=== PATIENT | male | born 1955 | race Caucasian/White ===

== ENCOUNTER 2019-06-07 08:28 | Inpatient (IN) | payer MEDICAID, OTHER ==
[~2019-06-07] VITALS: Ht 180.3 cm; Wt 69.4 kg
[2019-06-07] MEDS ORDERED: traMADol HCL 50 MG TAB PO ONE (10:15)
[2019-06-07 10:39] LABS: Basophils # (auto) 0.1 10 ^3/uL (0-0.2); Basophils % (auto) 1.5 % (0.0-2.0); Eosinophils # (auto) 0.2 10 ^3/uL (0-0.8); Eosinophils % (auto) 2.6 % (0.0-7.0); Hematocrit 43.6 % (41.0-53.0); Hemoglobin 15.3 g/dL (13.5-17.5); Lymphocytes # (auto) 1.7 10 ^3/uL (0.4-5.4); Lymphocytes % (auto) 28.6 % (10.0-50.0); Mean Corpuscular Hemoglobin 33.1 pg (28.0-32.0); Mean Corpuscular Hgb Conc. 35.1 g/dL (32.0-36.0); Mean Corpuscular Volume 94.4 fL (80.0-100.0); Monocytes # (auto) 0.5 10 ^3/uL (0-1.3); Monocytes % (auto) 8.1 % (0.0-12.0); Neutrophils # (auto) 3.6 10 ^3/uL (1.6-8.6); Neutrophils % (auto) 59.2 % (37.0-80.0); Nucleated Red Blood Cells % 0.1 %; Platelet Count (auto) 210 10^3/uL (140-450); Red Blood Cells 4.62 10^6/uL (4.5-5.90); Red Cell Distribution Width 14.1 % (11.8-14.3); White Blood Cell 6.1 10^3/uL (4.4-10.8)
[2019-06-07 10:53] LABS: INR 1.02 (0.9-1.15); Partial Thromboplastin Time 27.4 sec (23.64-32.05)
[2019-06-07 10:58] LABS: Albumin 3.8 g/dL (3.4-5.0); Anion Gap 3 (5-15); Blood Urea Nitrogen 16 mg/dL (7-18); Calcium 8.5 mg/dL (8.5-10.1); Carbon Dioxide 28 mmol/L (21-32); Chloride 109 mmol/L (98-107); Glucose 90 mg/dL (74-106); Potassium 3.8 mmol/L (3.5-5.1); Sodium 140 mmol/L (136-145)
[2019-06-07 11:04] LABS: Alanine Aminotransferase 34 U/L (16-61); Alkaline Phosphatase 77 U/L (45-117); Aspartate Aminotransferase 26 U/L (15-37); BUN/Creatinine Ratio 19.5; Bilirubin, Total 1.2 mg/dL (0.2-1.0); GFR African American 122 mL/min; GFR Non-African American 101 mL/min; Total Protein 7.7 g/dL (6.4-8.2)
[2019-06-07] MEDS ORDERED: ONDANSETRON HCL 4 MG/2 ML VIAL IV ONE (11:30)
[2019-06-07] MEDS ORDERED: MORPHINE SULF INJ 2 MG/ML SYRINGE 1ML IV ONE (11:30)
[2019-06-07 11:36] LABS: Urine Bacteria NONE SEEN /hpf (None Seen); Urine Blood Negative /uL (Negative); Urine Specific Gravity 1.011 (1.001-1.035); Urine WBC <1 /hpf (0 - 3)
[2019-06-07 11:49] LABS: Amphetamine Screen, Urine NEGATIVE (NEGATIVE); Barbiturate Scree,Urine NEGATIVE (NEGATIVE); Benzodiazephine Screen, Urine NEGATIVE (NEGATIVE); Cannabinoid Screen, Urine POSITIVE (NEGATIVE); Cocaine Screen, Urine NEGATIVE (NEGATIVE); Phencyclidine Screen, Urine NEGATIVE (NEGATIVE)
[2019-06-07 11:56] LABS: Alcohol, Urine < 3.0 mg/dL (0-5); Opiate Scree,Urine NEGATIVE (NEGATIVE)
[2019-06-07] MEDS ORDERED: HYDROcodone-ACET 5/325MG TAB PO PRN (14:00)
[2019-06-07] MEDS ORDERED: NITROGLYCERIN 0.4 MG SL TAB SL PRN (14:00)
[2019-06-07] MEDS ORDERED: ACETAMINOPHEN 500 MG TAB PO PRN (14:00)
[2019-06-07] MEDS ORDERED: MORPHINE SULF INJ 2 MG/ML SYRINGE 1ML IV PRN ×2 (14:00)
[2019-06-07] MEDS ORDERED: ONDANSETRON HCL 4 MG/2 ML VIAL IV PRN (14:00)
[2019-06-07 17:00] VITALS: BP 147/68
[2019-06-07 22:14] VITALS: BP 144/83
[2019-06-08 06:10] VITALS: BP 122/73
[2019-06-08 09:00] VITALS: BP 136/75
[2019-06-08] MEDS: FAMOTIDINE 20 MG TAB PO SCH (11:00)
[2019-06-08] MEDS: FOLIC ACID 1 MG, MULTIPLE VITAMIN 10 ML, MAGNESIUM SULF SDV 50% 8 MEQ, THIAMINE INJ 100... INJ SCH ×5 (12:30)
[2019-06-08 13:00] VITALS: BP 141/78
[2019-06-08 17:00] VITALS: BP 130/74
[2019-06-08 21:40] VITALS: BP 146/81
[2019-06-08] MEDS ORDERED: LORazepam 2MG/ML-1ML VIAL IV PRN (22:00)
[2019-06-08] MEDS ORDERED: LORazepam 2MG/ML-1ML VIAL IV ONE (22:00)
[2019-06-09 04:39] VITALS: BP 121/56
[2019-06-09 06:55] LABS: Basophils # (auto) 0 10 ^3/uL (0-0.2); Basophils % (auto) 0.7 % (0.0-2.0); Eosinophils # (auto) 0.2 10 ^3/uL (0-0.8); Eosinophils % (auto) 2.6 % (0.0-7.0); Hematocrit 42.8 % (41.0-53.0); Hemoglobin 14.6 g/dL (13.5-17.5); Lymphocytes # (auto) 1.8 10 ^3/uL (0.4-5.4); Lymphocytes % (auto) 25.6 % (10.0-50.0); Mean Corpuscular Hemoglobin 32.3 pg (28.0-32.0); Mean Corpuscular Hgb Conc. 34.1 g/dL (32.0-36.0); Mean Corpuscular Volume 94.8 fL (80.0-100.0); Monocytes # (auto) 0.7 10 ^3/uL (0-1.3); Monocytes % (auto) 9.7 % (0.0-12.0); Neutrophils # (auto) 4.3 10 ^3/uL (1.6-8.6); Neutrophils % (auto) 61.4 % (37.0-80.0); Platelet Count (auto) 208 10^3/uL (140-450); Red Blood Cells 4.52 10^6/uL (4.5-5.90); Red Cell Distribution Width 13.8 % (11.8-14.3); White Blood Cell 7.1 10^3/uL (4.4-10.8)
[2019-06-09 07:15] LABS: Albumin 3.4 g/dL (3.4-5.0); Calcium 8.4 mg/dL (8.5-10.1); Potassium 5.1 mmol/L (3.5-5.1)
[2019-06-09 07:18] LABS: BUN/Creatinine Ratio 16.5; Bilirubin, Total 0.6 mg/dL (0.2-1.0); Total Protein 6.8 g/dL (6.4-8.2)
[2019-06-09 09:00] VITALS: BP 140/72
[2019-06-09] MEDS: FAMOTIDINE 20 MG TAB PO SCH (10:51)
[2019-06-09] MEDS: FOLIC ACID 1 MG, MULTIPLE VITAMIN 10 ML, MAGNESIUM SULF SDV 50% 8 MEQ, THIAMINE INJ 100... INJ SCH ×5 (12:00)
[2019-06-09 13:00] VITALS: BP 152/78
[2019-06-09 17:00] VITALS: BP 151/84
[2019-06-09 21:34] VITALS: BP 133/73
[2019-06-10 02:03] VITALS: BP 141/77
[2019-06-10 05:39] VITALS: BP 137/75
[2019-06-10 09:00] VITALS: BP 163/93
[2019-06-10] MEDS: FAMOTIDINE 20 MG TAB PO SCH (09:46)
[2019-06-10] MEDS: FOLIC ACID 1 MG, MULTIPLE VITAMIN 10 ML, MAGNESIUM SULF SDV 50% 8 MEQ, THIAMINE INJ 100... INJ SCH ×5 (12:00)
[2019-06-10 13:00] VITALS: BP 141/88
== END 2019-06-10 14:30 | disposition home or self-care (01) | DRG 776 ==
LOC: EDBD 08:28 → ER 08:34 → TELE 08:35 → TELE-EAST 15:45
PROVIDERS: ADMIT Nurse Practitioner Acute Care; ATTEND Internal Medicine
DX: F12.988 Cannabis use, unspecified with other cannabis-induced disorder (principal); M41.9 Scoliosis, unspecified; S06.0X1A Concussion with loss of consciousness of 30 minutes or less, initial encounter; R55 Syncope and collapse; R00.1 Bradycardia, unspecified; M48.061 Spinal stenosis, lumbar region without neurogenic claudication; F17.210 Nicotine dependence, cigarettes, uncomplicated; Z90.49 Acquired absence of other specified parts of digestive tract; Z84.89 Family history of other specified conditions; Z59.0 Homelessness
CPT/HCPCS: 36415; 70450; 70551; 72125; 72131; 80053; 80307; 81001; 84484; 85025; 85610; 85730; 93005; 93306; 95819; 96374; 96375; G0378; J2405